=== PATIENT | female | born 1980 | race Caucasian/White ===

== ENCOUNTER → 2018-01-29 09:18 | Outpatient (CLI) | payer OTHER, MEDICAID, SELFPAY ==
[2018-01-29 10:10] LABS: HEMOLYSIS < 15 (0-50); Iron 211 ug/dL (37-170)
[2018-01-29 10:20] LABS: Percent Iron Saturation 73 % (15-50); Total Iron Binding Capacity 291 ug/dL (265-497); Transferrin 238 mg/dL (206-381)
[2018-01-29 10:40] LABS: TSH w/ Reflex to FT4 1.22 uIU/mL (0.47-4.68)
[2018-01-29 10:41] LABS: Testosterone 43.5 ng/dL (5.71-77.0)
== END ==
PROVIDERS: Family Provider Family Medicine; PCP Family Medicine; Visit Provider Family Medicine
DX: L65.9 Nonscarring hair loss, unspecified (principal)
CPT/HCPCS: 36415; 82728; 83540; 83550; 84403; 84443

== ENCOUNTER → 2018-07-16 09:32 | Outpatient (CLI) | payer OTHER, MEDICAID, SELFPAY ==
[2018-07-18 14:09] LABS: Rubeola Measles IgG < 25.00 AU/mL (< 25.00)
== END ==
PROVIDERS: Family Provider Family Medicine; PCP Family Medicine; Visit Provider Family Medicine
DX: Z01.84 Encounter for antibody response examination (principal)
CPT/HCPCS: 36415; 86735; 86765; 86787

== ENCOUNTER → 2018-10-01 12:47 | Outpatient (CLI) | payer OTHER, MEDICAID, SELFPAY ==
[2018-10-01 13:12] LABS: Hemoglobin A1C% w Est Avg Glu 4.7 % (4.0-6.0)
== END ==
PROVIDERS: Family Provider Family Medicine; PCP Family Medicine; Visit Provider Nurse Practitioner Psychiatric/Mental Health
DX: F31.77 Bipolar disorder, in partial remission, most recent episode mixed (principal); Z51.81 Encounter for therapeutic drug level monitoring
CPT/HCPCS: 36415; 83036

== ENCOUNTER → 2019-04-02 07:30 | Outpatient (CLI) | payer OTHER, MEDICAID, SELFPAY ==
[2019-04-02 08:40] LABS: Add Manual Diff / Slide Review NO; Basophils Absolute Auto 0 /uL (0-100); Basophils Percent Auto 0.3 % (0-2); Eosinophils Absolute Auto 100 /uL (0-450); Eosinophils Percent Auto 1.5 % (2-4); Hematocrit 39.4 % (36-46); Hemoglobin 13.6 g/dL (12.0-16.0); Lymphocytes Absolute Auto 1400 /uL (1100-4500); Lymphocytes Percent Auto 27.2 % (25-40); Mean Corpuscular HGB Conc 34.5 % (30-36); Mean Corpuscular Hemoglobin 31.8 PG (26-34); Mean Corpuscular Volume 92.1 fL (80-100); Monocytes Absolute Auto 300 /uL (0-900); Monocytes Percent Auto 4.8 % (3-14); Neutrophils Absolute Auto 3500 /uL (1500-7000); Neutrophils Percent Auto 66.2 % (50-75); Platelet Count 211 X10^3/uL (150-400); Red Blood Cell Count 4.28 X10^6/uL (4.0-5.2); Red Cell Distribution Width 13.4 % (11.6-14.8); White Blood Cell Count 5.3 X10^3/uL (4.5-11.0)
[2019-04-02 08:51] LABS: Vitamin D 25 Hydroxy (D3) 25.9 ng/mL (30.0-100.0)
[2019-04-02 08:53] LABS: Alanine Aminotransferase 24 IU/L (<35); Albumin 4.6 g/dL (3.5-5.0); Albumin Globulin Ratio 1.5 (1.0-2.8); Alkaline Phosphatase 67 U/L (38-126); Aspartate Aminotransferase 25 IU/L (14-36); BUN Creatinine Ratio 22.9 (6-22); Bilirubin Total 0.4 mg/dL (0.2-1.3); Bilirubin Unconjugated 0.4 mg/dL (0.0-1.1); Blood Urea Nitrogen 16 mg/dL (7-17); Calcium 9.3 mg/dL (8.4-10.2); Carbon Dioxide 23 mmol/L (22-32); Chloride 105 mmol/L (98-107); Cholesterol 180 mg/dL (140-199); Estimated Glomerular Filt Rate > 60.0 mL/min (>60); Globulin 3.1 g/dL (1.7-4.1); Glucose 99 mg/dL (70-100); HDL Cholesterol 48 mg/dL (40-60); HEMOLYSIS < 15 (0-50); LDL Cholesterol Calculated 105 mg/dL (<100); Potassium 3.8 mmol/L (3.4-5.1); Sodium 138 mmol/L (137-145); Total Protein 7.7 g/dL (6.3-8.2); Triglycerides 134 mg/dL (35-150)
[2019-04-02 09:08] LABS: Hemoglobin A1C% w Est Avg Glu 4.8 % (4.0-6.0)
[2019-04-02 09:10] LABS: Free T4, Direct Thyroxine 0.85 ng/dL (0.78-2.19)
[2019-04-02 09:24] LABS: Thyroid Stimulating Hormone 1.36 uIU/mL (0.47-4.68)
[2019-04-02 09:37] LABS: Vitamin B12 740 pg/mL (239-931)
== END ==
PROVIDERS: Family Provider Family Medicine; PCP Family Medicine; Referring Provider Nurse Practitioner Psychiatric/Mental Health; Visit Provider Nurse Practitioner Psychiatric/Mental Health
DX: Z51.81 Encounter for therapeutic drug level monitoring (principal); F31.77 Bipolar disorder, in partial remission, most recent episode mixed
CPT/HCPCS: 36415; 80053; 80061; 80076; 82306; 82607; 83036; 84439; 84443; 85025

== ENCOUNTER → 2019-04-03 09:10 | Outpatient (CLI) | payer OTHER, MEDICAID, SELFPAY ==
[2019-04-03 10:10] LABS: UR Morphine/Opiate cutoff 300 Negative (Negative); Ur Creatinine Normal (Normal); Ur Specific Gravity Normal (Normal); Urine Amphetamines Negative (Negative); Urine Barbiturates Negative (Negative); Urine Benzodiazepines Negative (Negative); Urine Cocaine Negative (Negative); Urine MDMA Negative (Negative); Urine Methadone Negative (Negative); Urine Methamphetamines Negative (Negative); Urine Oxycodone Negative (Negative); Urine Phencyclidine Negative (Negative); Urine Tetrahydrocannabinol Negative (Negative); Urine Tricyclic Antidepressant Negative (Negative); Urine pH Normal (Normal)
== END ==
PROVIDERS: Family Provider Family Medicine; PCP Family Medicine; Visit Provider Family Medicine Sleep Medicine
DX: G47.33 Obstructive sleep apnea (adult) (pediatric) (principal); R53.83 Other fatigue; G47.19 Other hypersomnia
CPT/HCPCS: 80305; 95805

== ENCOUNTER → 2019-12-29 15:11 | Outpatient (CLI) | payer OTHER, MEDICAID, SELFPAY ==
[2019-12-29 16:08] LABS: COVID19 -Nasal RAPID Negative (Negative)
== END ==
PROVIDERS: Family Provider Family Medicine; PCP Family Medicine; Visit Provider Nurse Practitioner
DX: J02.9 Acute pharyngitis, unspecified (principal); R05 Cough; R06.02 Shortness of breath; R19.7 Diarrhea, unspecified; R68.83 Chills (without fever)
CPT/HCPCS: 87635

== ENCOUNTER → 2020-04-14 11:05 | Outpatient (CLI) | payer OTHER, MEDICAID, SELFPAY ==
[2020-04-14 11:40] LABS: Add Manual Diff / Slide Review NO; Basophils Absolute Auto 100 /uL (0-100); Basophils Percent Auto 0.7 % (0-2); Eosinophils Absolute Auto 100 /uL (0-450); Eosinophils Percent Auto 1.1 % (2-4); Hematocrit 38.8 % (36-46); Hemoglobin 13.1 g/dL (12.0-16.0); Lymphocytes Absolute Auto 1700 /uL (1100-4500); Lymphocytes Percent Auto 24.1 % (25-40); Mean Corpuscular HGB Conc 33.8 % (30-36); Mean Corpuscular Hemoglobin 30.1 PG (26-34); Mean Corpuscular Volume 88.9 fL (80-100); Monocytes Absolute Auto 400 /uL (0-900); Neutrophils Absolute Auto 4800 /uL (1500-7000); Neutrophils Percent Auto 68.1 % (50-75); Platelet Count 302 X10^3/uL (150-400); Red Blood Cell Count 4.36 X10^6/uL (4.0-5.2); Red Cell Distribution Width 12.8 % (11.6-14.8); White Blood Cell Count 7.1 X10^3/uL (4.5-11.0)
[2020-04-14 12:12] LABS: Glucose 103 mg/dL (70-100)
[2020-04-14 12:51] LABS: TSH w/ Reflex to FT4 0.77 uIU/mL (0.47-4.68)
[2020-04-15 05:37] LABS: Thyroid Peroxidase Antibodies 30 IU/mL (0-34)
[2020-04-15 16:19] LABS: Anti Thyroglobulin Antibody <1.0 IU/mL (0.0-0.9)
== END ==
PROVIDERS: Family Provider Family Medicine; PCP Family Medicine; Referring Provider Nurse Practitioner Family; Visit Provider Family Medicine
DX: R63.5 Abnormal weight gain (principal); R53.83 Other fatigue
CPT/HCPCS: 36415; 82947; 84443; 85025; 86376; 86800

== ENCOUNTER → 2020-06-02 08:03 | Outpatient (CLI) | payer OTHER, MEDICAID, SELFPAY ==
[2020-06-02 08:46] LABS: Hemoglobin A1C% w Est Avg Glu 4.8 % (4.0-6.0)
[2020-06-02 09:18] LABS: HEMOLYSIS < 15 (0-50); Potassium 4.9 mmol/L (3.4-5.1)
[2020-06-02 09:19] LABS: Alanine Aminotransferase 17 IU/L (<35); Albumin 4.4 g/dL (3.5-5.0); Albumin Globulin Ratio 1.5 (1.0-2.8); Alkaline Phosphatase 86 U/L (38-126); Aspartate Aminotransferase 22 IU/L (14-36); BUN Creatinine Ratio 18.1 (6-22); Bilirubin Total 0.2 mg/dL (0.2-1.3); Blood Urea Nitrogen 15 mg/dL (7-17); Calcium 9.6 mg/dL (8.4-10.2); Carbon Dioxide 28 mmol/L (22-32); Chloride 102 mmol/L (98-107); Cholesterol 189 mg/dL (140-199); Estimated Glomerular Filt Rate > 60.0 mL/min (>60); Glucose 94 mg/dL (70-100); HDL Cholesterol 55 mg/dL (40-60); LDL Cholesterol Calculated 108 mg/dL (<100); Sodium 139 mmol/L (137-145); Total Protein 7.4 g/dL (6.3-8.2); Triglycerides 130 mg/dL (35-150)
[2020-06-03 07:36] LABS: Insulin Level Total 16.6 uIU/mL (2.6-24.9)
== END ==
PROVIDERS: Family Provider Family Medicine; PCP Family Medicine; Referring Provider Nurse Practitioner Psychiatric/Mental Health; Visit Provider Nurse Practitioner Psychiatric/Mental Health
DX: Z51.81 Encounter for therapeutic drug level monitoring (principal); F31.32 Bipolar disorder, current episode depressed, moderate; R73.01 Impaired fasting glucose
CPT/HCPCS: 36415; 80053; 80061; 83036; 83525

== ENCOUNTER → 2020-12-12 12:33 | Outpatient (CLI) | payer OTHER, MEDICAID, SELFPAY ==
[2020-12-12 13:16] LABS: Lithium 0.4 mmol/L (0.6-1.2)
[2020-12-12 13:19] LABS: BUN Creatinine Ratio 16.7 (6-22); Blood Urea Nitrogen 12 mg/dL (7-17); Calcium 9.3 mg/dL (8.4-10.2); Carbon Dioxide 27 mmol/L (22-32); Chloride 105 mmol/L (98-107); Estimated Glomerular Filt Rate > 60.0 mL/min (>60); Glucose 99 mg/dL (70-100); Potassium 4.5 mmol/L (3.4-5.1); Sodium 140 mmol/L (137-145)
[2020-12-12 13:20] LABS: HEMOLYSIS 67 (0-50)
[2020-12-12 13:36] LABS: Free T4, Direct Thyroxine 1.23 ng/dL (0.78-2.19)
== END ==
PROVIDERS: Family Provider Family Medicine; PCP Family Medicine; Referring Provider Nurse Practitioner Psychiatric/Mental Health; Visit Provider Nurse Practitioner Psychiatric/Mental Health
DX: F31.32 Bipolar disorder, current episode depressed, moderate (principal); L65.9 Nonscarring hair loss, unspecified; Z51.81 Encounter for therapeutic drug level monitoring; G47.10 Hypersomnia, unspecified
CPT/HCPCS: 36415; 80048; 80178; 84439; 84443

== ENCOUNTER 2020-12-14 13:54 | Emergency (ER) | payer OTHER, MEDICAID, SELFPAY ==
[2020-12-14] VITALS (14 sets, daily range): BP systolic 124–158; BP diastolic 61–98; PULSE 84–115; RESP 24–30; TEMP 36.4–36.8; O2SAT 95–100
--- NOTE | 2020-12-14 13:57 | ED.GENADULT ---
HPI - General Adult <Robin Ray DO - Last Filed: 12/15/20 18:36> General Chief complaint: Psychiatric Symptoms Stated complaint: Psyc Time Seen by Provider: 12/14/20 13:56 Mode of arrival: Ambulatory Limitations: altered mental status History of Present Illness HPI narrative: Patient is a 40-year-old female. Unable to provide any HPI secondary to her presenting psychosis. Patient arrived here in the emergency department under the care of the mental health department. His reported that she did not have an appointment today at mental health. Is reported that she barged into 1 of the provider office is at the mental health clinic. Patient was not directable. Was violent. Apparently through a vace. A code álvarez was called. He left the mental health clinic was walking down the hospital hallway. She was directed to the emergency department. Related Data Previous Rx's Medication Instructions Recorded lamotrigine 100 mg tablet 150 mg PO DAILY #135 tab 09/21/20 lithium carbonate 300 mg capsule 900 mg PO BEDTIME #90 cap 11/17/20 lumateperone 42 mg capsule 42 mg PO DAILY #30 cap 11/17/20 (Caplyta) Allergies Allergy/AdvReac Type Severity Reaction Status Date / Time No Known Drug Allergies Allergy Verified 12/15/20 09:00 Review of Systems <Robin Ray DO - Last Filed: 12/15/20 18:36> Review of Systems ROS Unobtainable: Unobtainable due to mental condition Patient History <Robin Ray DO - Last Filed: 12/15/20 18:36> Medical History Anemia Bipolar 1 disorder, mixed, full remission Bipolar disorder Erythrasma HSV-1 (herpes simplex virus 1) infection Irritable bowel syndrome Obesity Recurrent herpetic eyad (12/28/11) Seasonal allergies Surgical History Anesthesia History of bilateral salpingo-oophorectomy (BSO) (~1999) Ulna fracture (~09/29/14) Family History Grandmother Diabetes mellitus Grandfather Diabetes mellitus Social History Smoking Status: Never smoker Smoking Status: Never smoker Exam <Robin Ray DO - Last Filed: 12/15/20 18:36> Initial Vital Signs Initial Vital Signs: Vital Signs Temperature 98 F 12/14/20 14:22 Pulse Rate 87 12/14/20 14:22 Respiratory Rate 24 12/14/20 14:22 Blood Pressure 131/61 12/14/20 14:22 Pulse Oximetry 96 12/14/20 14:22 HENMT Head: normal to inspection and normocephalic Resp Effort & Inspection: normal respiratory effort Cardio Rate: regular rate Skin General: no rashes or lesions noted Neuro Other: Moves all 4 extremities Extrem General: normal to inspection Psych Other: Not directable, does not speak in coherent sentences. Has an appropriate actions to the staff. <Megha Baires DO - Last Filed: 12/16/20 00:40> Initial Vital Signs Initial Vital Signs: Vital Signs Temperature 98 F 12/14/20 14:22 Pulse Rate 87 12/14/20 14:22 Respiratory Rate 24 12/14/20 14:22 Blood Pressure 131/61 12/14/20 14:22 Pulse Oximetry 96 12/14/20 14:22 Course <Robin Ray DO - Last Filed: 12/15/20 18:36> Orders Ordered: Discontinued Medications Diphenhydramine HCl (Diphenhydramine 50 Mg/Ml Vial) 50 mg IM NOW ONE Stop: 12/14/20 13:58 Last Admin: 12/14/20 14:07 Dose: 50 mg Documented by: TYREE Haloperidol (Haloperidol 5 Mg/Ml Vial) 5 mg IM NOW ONE Stop: 12/14/20 13:58 Last Admin: 12/14/20 14:08 Dose: 5 mg Documented by: TYREE Haloperidol (Haloperidol 5 Mg/Ml Vial) 5 mg IM NOW ONE Stop: 12/14/20 14:00 Last Admin: 12/14/20 14:08 Dose: Not Given Documented by: TYREE Haloperidol (Haloperidol 5 Mg Tablet) 10 mg PO NOW ONE Stop: 12/14/20 18:33 Last Admin: 12/14/20 18:56 Dose: 10 mg Documented by: VIR[place]IA [place] Carbonate ([place] 150 Mg Ir Capsule) 900 mg PO NOW ONE Stop: 12/15/20 04:50 Last Admin: 12/15/20 05:06 Dose: 900 mg Documented by: APOORVA Lorazepam (Lorazepam 2 Mg/Ml Inj) 2 mg IM NOW ONE Stop: 12/14/20 13:58 Last Admin: 12/14/20 14:08 Dose: 2 mg Documented by: YTREE Lorazepam (Lorazepam 0.5 Mg Tablet) 1 mg PO NOW ONE Stop: 12/15/20 09:00 Last Admin: 12/15/20 11:37 Dose: Not Given Documented by: JOYCE Olanzapine (Olanzapine Odt 10 Mg Tab) 10 mg PO NOW ONE Stop: 12/15/20 04:25 Vital Signs Vital signs: Vital Signs - 8 hr 12/15/20 17:48 Temperature 97.9 F Pulse Rate 92 H Respiratory Rate 22 Blood Pressure 128/64 Pulse Oximetry 98 <Megha Baires DO - Last Filed: 12/16/20 00:40> Orders Ordered: Discontinued Medications Diphenhydramine HCl (Diphenhydramine 50 Mg/Ml Vial) 50 mg IM NOW ONE Stop: 12/14/20 13:58 Last Admin: 12/14/20 14:07 Dose: 50 mg Documented by: TYREE Haloperidol (Haloperidol 5 Mg/Ml Vial) 5 mg IM NOW ONE Stop: 12/14/20 13:58 Last Admin: 12/14/20 14:08 Dose: 5 mg Documented by: TYREE Haloperidol (Haloperidol 5 Mg/Ml Vial) 5 mg IM NOW ONE Stop: 12/14/20 14:00 Last Admin: 12/14/20 14:08 Dose: Not Given Documented by: TYREE Haloperidol (Haloperidol 5 Mg Tablet) 10 mg PO NOW ONE Stop: 12/14/20 18:33 Last Admin: 12/14/20 18:56 Dose: 10 mg Documented by: [place] Carbonate ([place] 150 Mg Ir Capsule) 900 mg PO NOW ONE Stop: 12/15/20 04:50 Last Admin: 12/15/20 05:06 Dose: 900 mg Documented by: APOORVA Lorazepam (Lorazepam 2 Mg/Ml Inj) 2 mg IM NOW ONE Stop: 12/14/20 13:58 Last Admin: 12/14/20 14:08 Dose: 2 mg Documented by: TYREE Lorazepam (Lorazepam 0.5 Mg Tablet) 1 mg PO NOW ONE Stop: 12/15/20 09:00 Last Admin: 12/15/20 11:37 Dose: Not Given Documented by: KBROTEM Olanzapine (Olanzapine Odt 10 Mg Tab) 10 mg PO NOW ONE Stop: 12/15/20 04:25 Reevaluation(s) Reevaluation #1: Patient signed out to myself by Dr. Ray. Patient has a history of bipolar. Her lithium level was low making it likely she has been off her medications. This time she is medically cleared. She did receive IM medications she was acutely agitated and had reported code álvarez at the outpatient psych office which she had presented to without reported office visit today. Patient had been sleeping throughout her stay in the department after medications but had since awaken she did give a urine sample this does not show any signs of intoxication or infection. Patient is agitated but was able to be redirected back to her room with the door closed. She was offered p.o. medication. Patient does appear to potentially be gravely disabled. Time: 18:36 Reevaluation #2: Patient re-evaluated. She continues to be quite manic. Our social media director had seen her faxed paperwork to be 0 a. Patient was reviewed by Shaquille. There was discussion about detainment but ultimately they decided they could not as she is not homicidal or suicidal. Patient did take oral medications when prompted this evening. She has been in the room with door unlocked. Plan to keep the patient at this time and if she continues to be voluntary plan for repeat evaluation with our social media director in the morning for possible voluntary placement. Patient's mother was here earlier and did feel she would benefit from placement. Time: 12:30 Vital Signs Vital signs: Vital Signs - 8 hr 12/15/20 17:48 Temperature 97.9 F Pulse Rate 92 H Respiratory Rate 22 Blood Pressure 128/64 Pulse Oximetry 98 Medical Decision Making <Robin Ray, DO - Last Filed: 12/15/20 18:36> Lab Data Lab results reviewed: Yes I reviewed the patient's lab results. Result diagrams: 12/14/20 14:45 12/14/20 14:45 Labs: Lab Results 12/14/20 12/14/20 12/14/20 Range/Units 14:35 14:45 14:45 WBC (4.5-11.0) X10^3/uL RBC (4.0-5.2) X10^6/uL Hgb (12.0-16.0) g/dL Hct (36-46) % MCV (80-100) fL MCH (26-34) PG MCHC (30-36) % RDW (11.6-14.8) % Plt Count (150-400) X10^3/uL Neut % (Auto) (50-75) % Lymph % (Auto) (25-40) % [place] % (Auto) (3-14) % Eos % (Auto) (2-4) % Baso % (Auto) (0-2) % Neut # (Auto) (8324-4039) /uL Lymph # (Auto) (0607-2900) /uL [place] # (Auto) (0-900) /uL Eos # (Auto) (0-450) /uL Baso # (Auto) (0-100) /uL Sodium (137-145) mmol/L Potassium (3.4-5.1) mmol/L Chloride (98-107) mmol/L Carbon Dioxide (22-32) mmol/L BUN (7-17) mg/dL Creatinine (0.52-1.04) mg/dL Estimated GFR (>60) mL/min BUN/Creatinine Ratio (6-22) Glucose (70-100) mg/dL Calcium (8.4-10.2) mg/dL Total Bilirubin (0.2-1.3) mg/dL AST (14-36) IU/L ALT (<35) IU/L Alkaline Phosphatase (38-126) U/L Total Protein (6.3-8.2) g/dL Albumin (3.5-5.0) g/dL Globulin (1.7-4.1) g/dL Albumin/Globulin Ratio (1.0-2.8) Lipase 55 (23-300) U/L TSH (0.47-4.68) uIU/mL Serum , Qual (Negative) Urine Color Urine Appearance Urine pH (4.5-8.0) Ur Specific [place] (1.000-1.035) Urine Protein (Negative) Urine Glucose (UA) (Negative) g/dL Urine Ketones (NEGATIVE) Urine Occult Blood (Negative) Urine Nitrate (Negative) Urine Bilirubin (NEGATIVE) Urine Urobilinogen (0.2) E.U./dL Ur Leukocyte Esterase (NEGATIVE) Urine RBC (0-5/HPF) Urine WBC (0-5/HPF) Ur Squamous Epith Cells (0-5/HPF) Urine Bacteria (None) Ur Culture Indicated? Salicylates < 1.0 (<20) mg/dL U Opiates 300ng/mL cut (Negative) Ur Oxycodone Screen (Negative) Urine Methadone Screen (Negative) Acetaminophen < 10 L (10-30) ug/mL Ur Barbiturates Screen (Negative) U Tricyclic Antidepress (Negative) Ur Phencyclidine Scrn (Negative) Ur Amphetamines Screen (Negative) U Methamphetamines Scrn (Negative) Ur MDMA Scrn (Ecstasy) (Negative) U Benzodiazepines Scrn (Negative) [place] (0.6-1.2) mmol/L Urine Cocaine Screen (Negative) U Marijuana (THC) Screen (Negative) Ethyl Alcohol < 10 ( - 10) mg/dL SARS-CoV-2 (PCR) Negative (Negative) 12/14/20 12/14/20 12/14/20 Range/Units 14:45 14:45 14:45 WBC 10.1 (4.5-11.0) X10^3/uL RBC 3.92 L (4.0-5.2) X10^6/uL Hgb 12.2 (12.0-16.0) g/dL Hct 35.1 L (36-46) % MCV 89.7 (80-100) fL MCH 31.2 (26-34) PG MCHC 34.8 (30-36) % RDW 13.2 (11.6-14.8) % Plt Count 302 (150-400) X10^3/uL Neut % (Auto) 83.2 H (50-75) % Lymph % (Auto) 10.2 L (25-40) % [place] % (Auto) 5.8 (3-14) % Eos % (Auto) 0.1 L (2-4) % Baso % (Auto) 0.7 (0-2) % Neut # (Auto) 8400 H (4745-3369) /uL Lymph # (Auto) 1000 L (0882-0097) /uL [place] # (Auto) 600 (0-900) /uL Eos # (Auto) 0 (0-450) /uL Baso # (Auto) 100 (0-100) /uL Sodium (137-145) mmol/L Potassium (3.4-5.1) mmol/L Chloride (98-107) mmol/L Carbon Dioxide (22-32) mmol/L BUN (7-17) mg/dL Creatinine (0.52-1.04) mg/dL Estimated GFR (>60) mL/min BUN/Creatinine Ratio (6-22) Glucose (70-100) mg/dL Calcium (8.4-10.2) mg/dL Total Bilirubin (0.2-1.3) mg/dL AST (14-36) IU/L ALT (<35) IU/L Alkaline Phosphatase (38-126) U/L Total Protein (6.3-8.2) g/dL Albumin (3.5-5.0) g/dL Globulin (1.7-4.1) g/dL Albumin/Globulin Ratio (1.0-2.8) Lipase (23-300) U/L TSH 3.22 D (0.47-4.68) uIU/mL Serum , Qual Negative (Negative) Urine Color Urine Appearance Urine pH (4.5-8.0) Ur Specific [place] (1.000-1.035) Urine Protein (Negative) Urine Glucose (UA) (Negative) g/dL Urine Ketones (NEGATIVE) Urine Occult Blood (Negative) Urine Nitrate (Negative) Urine Bilirubin (NEGATIVE) Urine Urobilinogen (0.2) E.U./dL Ur Leukocyte Esterase (NEGATIVE) Urine RBC (0-5/HPF) Urine WBC (0-5/HPF) Ur Squamous Epith Cells (0-5/HPF) Urine Bacteria (None) Ur Culture Indicated? Salicylates (<20) mg/dL U Opiates 300ng/mL cut (Negative) Ur Oxycodone Screen (Negative) Urine Methadone Screen (Negative) Acetaminophen (10-30) ug/mL Ur Barbiturates Screen (Negative) U Tricyclic Antidepress (Negative) Ur Phencyclidine Scrn (Negative) Ur Amphetamines Screen (Negative) U Methamphetamines Scrn (Negative) Ur MDMA Scrn (Ecstasy) (Negative) U Benzodiazepines Scrn (Negative) [place] (0.6-1.2) mmol/L Urine Cocaine Screen (Negative) U Marijuana (THC) Screen (Negative) Ethyl Alcohol ( - 10) mg/dL SARS-CoV-2 (PCR) (Negative) 12/14/20 12/14/20 12/14/20 Range/Units 14:45 14:45 17:58 WBC (4.5-11.0) X10^3/uL RBC (4.0-5.2) X10^6/uL Hgb (12.0-16.0) g/dL Hct (36-46) % MCV (80-100) fL MCH (26-34) PG MCHC (30-36) % RDW (11.6-14.8) % Plt Count (150-400) X10^3/uL Neut % (Auto) (50-75) % Lymph % (Auto) (25-40) % [place] % (Auto) (3-14) % Eos % (Auto) (2-4) % Baso % (Auto) (0-2) % Neut # (Auto) (4897-8396) /uL Lymph # (Auto) (9872-7540) /uL [place] # (Auto) (0-900) /uL Eos # (Auto) (0-450) /uL Baso # (Auto) (0-100) /uL Sodium 137 (137-145) mmol/L Potassium 3.5 (3.4-5.1) mmol/L Chloride 103 (98-107) mmol/L Carbon Dioxide 21 L (22-32) mmol/L BUN 10 (7-17) mg/dL Creatinine 0.79 (0.52-1.04) mg/dL Estimated GFR > 60.0 (>60) mL/min BUN/Creatinine Ratio 12.7 (6-22) Glucose 106 H (70-100) mg/dL Calcium 9.5 (8.4-10.2) mg/dL Total Bilirubin 0.7 (0.2-1.3) mg/dL AST 39 H (14-36) IU/L ALT 22 (<35) IU/L Alkaline Phosphatase 85 (38-126) U/L Total Protein 7.5 (6.3-8.2) g/dL Albumin 4.5 (3.5-5.0) g/dL Globulin 3.0 (1.7-4.1) g/dL Albumin/Globulin Ratio 1.5 (1.0-2.8) Lipase (23-300) U/L TSH (0.47-4.68) uIU/mL Serum , Qual (Negative) Urine Color Yellow Urine Appearance Clear Urine pH 6.0 (4.5-8.0) Ur Specific [place] 1.010 (1.000-1.035) Urine Protein Negative (Negative) Urine Glucose (UA) Negative (Negative) g/dL Urine Ketones 1+ H (NEGATIVE) Urine Occult Blood Trace-lysed (Negative) Urine Nitrate Negative (Negative) Urine Bilirubin Negative (NEGATIVE) Urine Urobilinogen 0.2 (0.2) E.U./dL Ur Leukocyte Esterase Negative (NEGATIVE) Urine RBC 0-1/hpf (0-5/HPF) Urine WBC 0-1/hpf (0-5/HPF) Ur Squamous Epith Cells 0-1 /hpf (0-5/HPF) Urine Bacteria None seen (None) Ur Culture Indicated? Cult not indicated Salicylates (<20) mg/dL U Opiates 300ng/mL cut (Negative) Ur Oxycodone Screen (Negative) Urine Methadone Screen (Negative) Acetaminophen (10-30) ug/mL Ur Barbiturates Screen (Negative) U Tricyclic Antidepress (Negative) Ur Phencyclidine Scrn (Negative) Ur Amphetamines Screen (Negative) U Methamphetamines Scrn (Negative) Ur MDMA Scrn (Ecstasy) (Negative) U Benzodiazepines Scrn (Negative) [place] 0.2 L (0.6-1.2) mmol/L Urine Cocaine Screen (Negative) U Marijuana (THC) Screen (Negative) Ethyl Alcohol ( - 10) mg/dL SARS-CoV-2 (PCR) (Negative) 12/14/20 Range/Units 17:58 WBC (4.5-11.0) X10^3/uL RBC (4.0-5.2) X10^6/uL Hgb (12.0-16.0) g/dL Hct (36-46) % MCV (80-100) fL MCH (26-34) PG MCHC (30-36) % RDW (11.6-14.8) % Plt Count (150-400) X10^3/uL Neut % (Auto) (50-75) % Lymph % (Auto) (25-40) % [place] % (Auto) (3-14) % Eos % (Auto) (2-4) % Baso % (Auto) (0-2) % Neut # (Auto) (2953-0013) /uL Lymph # (Auto) (9749-5748) /uL [place] # (Auto) (0-900) /uL Eos # (Auto) (0-450) /uL Baso # (Auto) (0-100) /uL Sodium (137-145) mmol/L Potassium (3.4-5.1) mmol/L Chloride (98-107) mmol/L Carbon Dioxide (22-32) mmol/L BUN (7-17) mg/dL Creatinine (0.52-1.04) mg/dL Estimated GFR (>60) mL/min BUN/Creatinine Ratio (6-22) Glucose (70-100) mg/dL Calcium (8.4-10.2) mg/dL Total Bilirubin (0.2-1.3) mg/dL AST (14-36) IU/L ALT (<35) IU/L Alkaline Phosphatase (38-126) U/L Total Protein (6.3-8.2) g/dL Albumin (3.5-5.0) g/dL Globulin (1.7-4.1) g/dL Albumin/Globulin Ratio (1.0-2.8) Lipase (23-300) U/L TSH (0.47-4.68) uIU/mL Serum , Qual (Negative) Urine Color Urine Appearance Urine pH (4.5-8.0) Ur Specific [place] (1.000-1.035) Urine Protein (Negative) Urine Glucose (UA) (Negative) g/dL Urine Ketones (NEGATIVE) Urine Occult Blood (Negative) Urine Nitrate (Negative) Urine Bilirubin (NEGATIVE) Urine Urobilinogen (0.2) E.U./dL Ur Leukocyte Esterase (NEGATIVE) Urine RBC (0-5/HPF) Urine WBC (0-5/HPF) Ur Squamous Epith Cells (0-5/HPF) Urine Bacteria (None) Ur Culture Indicated? Salicylates (<20) mg/dL U Opiates 300ng/mL cut Negative (Negative) Ur Oxycodone Screen Negative (Negative) Urine Methadone Screen Negative (Negative) Acetaminophen (10-30) ug/mL Ur Barbiturates Screen Negative (Negative) U Tricyclic Antidepress Negative (Negative) Ur Phencyclidine Scrn Negative (Negative) Ur Amphetamines Screen Negative (Negative) U Methamphetamines Scrn Negative (Negative) Ur MDMA Scrn (Ecstasy) Negative (Negative) U Benzodiazepines Scrn Negative (Negative) [place] (0.6-1.2) mmol/L Urine Cocaine Screen Negative (Negative) U Marijuana (THC) Screen Negative (Negative) Ethyl Alcohol ( - 10) mg/dL SARS-CoV-2 (PCR) (Negative) Point of Care Testing Test Results Negative Urine Dip Bedside Urine Glucose Negative Bedside Urine Bilirubin - Negative Bedside Urine Ketone + 15 Urine Specific [place] 1.020 Bedside Urine Occult Blood - Negative Bedside Urine pH 6.0 Bedside Urine Protein - Negative Bedside Urine Urobilinogen - Negative Bedside Urine Nitrite - Negative Bedside Urine Leukocytes - Negative Esterase Point of care testing: Point of Care Testing Test Results Negative Urine Dip Bedside Urine Glucose Negative Bedside Urine Bilirubin - Negative Bedside Urine Ketone + 15 Urine Specific [place] 1.020 Bedside Urine Occult Blood - Negative Bedside Urine pH 6.0 Bedside Urine Protein - Negative Bedside Urine Urobilinogen - Negative Bedside Urine Nitrite - Negative Bedside Urine Leukocytes - Negative Esterase MDM Narrative Medical decision making narrative: Upon presentation patient obviously manic. Patient does not have capacity to make decisions. She was inappropriate with her actions, was not directable. Was not oriented. Was violent at the mental health clinic. I did feel the need to chemically sedate the patient for her safety and the safety of the staff. Labs are ordered. Decision was made to hold on obtaining any urine from the patient until she becomes more awake. Care turned over to night ED provider to continue to observe and medically clear and disposition. Patient medically cleared. Patient was evaluated by our social media director we both feel she is appropriate to be evaluated by [facility] she appears to be gravely disabled from her bipolar at this time. Mother did arrive and states she was hospitalized in the month of June. She states she has not been well controlled even with her medications and they noted she took them several days ago. She is scheduled for core appearance regarding her divorce and custody of her children and she states this has been making her bipolar worse as the patient is aware that she is going to lose her children secondary to her disease. Mother states that she does think hospitalization would be very appropriate and that if it is a possibility placement at [facility] would be preferred which is where she was last placed as they live in [place]. [address] did not detain patient after evaluation although there was discussion initially that they might. They feel patient is not a danger to herself or others at this time. Our social media director did see her here in the department and so far patient has continued to be agreeable to staying until the morning for evaluation. Patient signed out to Dr. Ray this morning for final disposition. Dr ray: I am aware of the patient from yesterday's visit. I did review the overnight notes. Patient was seen by DCR but decision was made to not involuntarily admit. On my evaluation today the patient is consistently manic. She is minimally directable. At 1 point was screaming out in the room because she ?did not want any shots. I told her that were not going to give her any more medicine through a shot. She did take medication orally. I do not feel that the patient has capacity to make decisions. Her open Door restraints were renewed multiple times. Patient was seen in the emergency department by her mental health provider. She was also seen again by social Work. Everyone is in agreement that the patient should not be discharged home. She was re-evaluated by DCR and this time was detained. I do feel that this is the best thing for her. Her mother who was here today also feel this is the best thing. Social work and the patient's mental health provider also agree. Patient will be transported for continued inpatient mental health evaluation and treatment. <Megha Baires, DO - Last Filed: 12/16/20 00:40> Lab Data Labs: Lab Results 12/14/20 12/14/20 12/14/20 Range/Units 14:35 14:45 14:45 WBC (4.5-11.0) X10^3/uL RBC (4.0-5.2) X10^6/uL Hgb (12.0-16.0) g/dL Hct (36-46) % MCV (80-100) fL MCH (26-34) PG MCHC (30-36) % RDW (11.6-14.8) % Plt Count (150-400) X10^3/uL Neut % (Auto) (50-75) % Lymph % (Auto) (25-40) % [place] % (Auto) (3-14) % Eos % (Auto) (2-4) % Baso % (Auto) (0-2) % Neut # (Auto) (2186-5916) /uL Lymph # (Auto) (2947-8727) /uL [place] # (Auto) (0-900) /uL Eos # (Auto) (0-450) /uL Baso # (Auto) (0-100) /uL Sodium (137-145) mmol/L Potassium (3.4-5.1) mmol/L Chloride (98-107) mmol/L Carbon Dioxide (22-32) mmol/L BUN (7-17) mg/dL Creatinine (0.52-1.04) mg/dL Estimated GFR (>60) mL/min BUN/Creatinine Ratio (6-22) Glucose (70-100) mg/dL Calcium (8.4-10.2) mg/dL Total Bilirubin (0.2-1.3) mg/dL AST (14-36) IU/L ALT (<35) IU/L Alkaline Phosphatase (38-126) U/L Total Protein (6.3-8.2) g/dL Albumin (3.5-5.0) g/dL Globulin (1.7-4.1) g/dL Albumin/Globulin Ratio (1.0-2.8) Lipase 55 (23-300) U/L TSH (0.47-4.68) uIU/mL Serum , Qual (Negative) Urine Color Urine Appearance Urine pH (4.5-8.0) Ur Specific [place] (1.000-1.035) Urine Protein (Negative) Urine Glucose (UA) (Negative) g/dL Urine Ketones (NEGATIVE) Urine Occult Blood (Negative) Urine Nitrate (Negative) Urine Bilirubin (NEGATIVE) Urine Urobilinogen (0.2) E.U./dL Ur Leukocyte Esterase (NEGATIVE) Urine RBC (0-5/HPF) Urine WBC (0-5/HPF) Ur Squamous Epith Cells (0-5/HPF) Urine Bacteria (None) Ur Culture Indicated? Salicylates < 1.0 (<20) mg/dL U Opiates 300ng/mL cut (Negative) Ur Oxycodone Screen (Negative) Urine Methadone Screen (Negative) Acetaminophen < 10 L (10-30) ug/mL Ur Barbiturates Screen (Negative) U Tricyclic Antidepress (Negative) Ur Phencyclidine Scrn (Negative) Ur Amphetamines Screen (Negative) U Methamphetamines Scrn (Negative) Ur MDMA Scrn (Ecstasy) (Negative) U Benzodiazepines Scrn (Negative) [place] (0.6-1.2) mmol/L Urine Cocaine Screen (Negative) U Marijuana (THC) Screen (Negative) Ethyl Alcohol < 10 ( - 10) mg/dL SARS-CoV-2 (PCR) Negative (Negative) 12/14/20 12/14/20 12/14/20 Range/Units 14:45 14:45 14:45 WBC 10.1 (4.5-11.0) X10^3/uL RBC 3.92 L (4.0-5.2) X10^6/uL Hgb 12.2 (12.0-16.0) g/dL Hct 35.1 L (36-46) % MCV 89.7 (80-100) fL MCH 31.2 (26-34) PG MCHC 34.8 (30-36) % RDW 13.2 (11.6-14.8) % Plt Count 302 (150-400) X10^3/uL Neut % (Auto) 83.2 H (50-75) % Lymph % (Auto) 10.2 L (25-40) % [place] % (Auto) 5.8 (3-14) % Eos % (Auto) 0.1 L (2-4) % Baso % (Auto) 0.7 (0-2) % Neut # (Auto) 8400 H (8756-7942) /uL Lymph # (Auto) 1000 L (8216-5484) /uL [place] # (Auto) 600 (0-900) /uL Eos # (Auto) 0 (0-450) /uL Baso # (Auto) 100 (0-100) /uL Sodium (137-145) mmol/L Potassium (3.4-5.1) mmol/L Chloride (98-107) mmol/L Carbon Dioxide (22-32) mmol/L BUN (7-17) mg/dL Creatinine (0.52-1.04) mg/dL Estimated GFR (>60) mL/min BUN/Creatinine Ratio (6-22) Glucose (70-100) mg/dL Calcium (8.4-10.2) mg/dL Total Bilirubin (0.2-1.3) mg/dL AST (14-36) IU/L ALT (<35) IU/L Alkaline Phosphatase (38-126) U/L Total Protein (6.3-8.2) g/dL Albumin (3.5-5.0) g/dL Globulin (1.7-4.1) g/dL Albumin/Globulin Ratio (1.0-2.8) Lipase (23-300) U/L TSH 3.22 D (0.47-4.68) uIU/mL Serum , Qual Negative (Negative) Urine Color Urine Appearance Urine pH (4.5-8.0) Ur Specific [place] (1.000-1.035) Urine Protein (Negative) Urine Glucose (UA) (Negative) g/dL Urine Ketones (NEGATIVE) Urine Occult Blood (Negative) Urine Nitrate (Negative) Urine Bilirubin (NEGATIVE) Urine Urobilinogen (0.2) E.U./dL Ur Leukocyte Esterase (NEGATIVE) Urine RBC (0-5/HPF) Urine WBC (0-5/HPF) Ur Squamous Epith Cells (0-5/HPF) Urine Bacteria (None) Ur Culture Indicated? Salicylates (<20) mg/dL U Opiates 300ng/mL cut (Negative) Ur Oxycodone Screen (Negative) Urine Methadone Screen (Negative) Acetaminophen (10-30) ug/mL Ur Barbiturates Screen (Negative) U Tricyclic Antidepress (Negative) Ur Phencyclidine Scrn (Negative) Ur Amphetamines Screen (Negative) U Methamphetamines Scrn (Negative) Ur MDMA Scrn (Ecstasy) (Negative) U Benzodiazepines Scrn (Negative) [place] (0.6-1.2) mmol/L Urine Cocaine Screen (Negative) U Marijuana (THC) Screen (Negative) Ethyl Alcohol ( - 10) mg/dL SARS-CoV-2 (PCR) (Negative) 12/14/20 12/14/20 12/14/20 Range/Units 14:45 14:45 17:58 WBC (4.5-11.0) X10^3/uL RBC (4.0-5.2) X10^6/uL Hgb (12.0-16.0) g/dL Hct (36-46) % MCV (80-100) fL MCH (26-34) PG MCHC (30-36) % RDW (11.6-14.8) % Plt Count (150-400) X10^3/uL Neut % (Auto) (50-75) % Lymph % (Auto) (25-40) % [place] % (Auto) (3-14) % Eos % (Auto) (2-4) % Baso % (Auto) (0-2) % Neut # (Auto) (3972-6761) /uL Lymph # (Auto) (3205-0853) /uL [place] # (Auto) (0-900) /uL Eos # (Auto) (0-450) /uL Baso # (Auto) (0-100) /uL Sodium 137 (137-145) mmol/L Potassium 3.5 (3.4-5.1) mmol/L Chloride 103 (98-107) mmol/L Carbon Dioxide 21 L (22-32) mmol/L BUN 10 (7-17) mg/dL Creatinine 0.79 (0.52-1.04) mg/dL Estimated GFR > 60.0 (>60) mL/min BUN/Creatinine Ratio 12.7 (6-22) Glucose 106 H (70-100) mg/dL Calcium 9.5 (8.4-10.2) mg/dL Total Bilirubin 0.7 (0.2-1.3) mg/dL AST 39 H (14-36) IU/L ALT 22 (<35) IU/L Alkaline Phosphatase 85 (38-126) U/L Total Protein 7.5 (6.3-8.2) g/dL Albumin 4.5 (3.5-5.0) g/dL Globulin 3.0 (1.7-4.1) g/dL Albumin/Globulin Ratio 1.5 (1.0-2.8) Lipase (23-300) U/L TSH (0.47-4.68) uIU/mL Serum , Qual (Negative) Urine Color Yellow Urine Appearance Clear Urine pH 6.0 (4.5-8.0) Ur Specific Pitts 1.010 (1.000-1.035) Urine Protein Negative (Negative) Urine Glucose (UA) Negative (Negative) g/dL Urine Ketones 1+ H (NEGATIVE) Urine Occult Blood Trace-lysed (Negative) Urine Nitrate Negative (Negative) Urine Bilirubin Negative (NEGATIVE) Urine Urobilinogen 0.2 (0.2) E.U./dL Ur Leukocyte Esterase Negative (NEGATIVE) Urine RBC 0-1/hpf (0-5/HPF) Urine WBC 0-1/hpf (0-5/HPF) Ur Squamous Epith Cells 0-1 /hpf (0-5/HPF) Urine Bacteria None seen (None) Ur Culture Indicated? Cult not indicated Salicylates (<20) mg/dL U Opiates 300ng/mL cut (Negative) Ur Oxycodone Screen (Negative) Urine Methadone Screen (Negative) Acetaminophen (10-30) ug/mL Ur Barbiturates Screen (Negative) U Tricyclic Antidepress (Negative) Ur Phencyclidine Scrn (Negative) Ur Amphetamines Screen (Negative) U Methamphetamines Scrn (Negative) Ur MDMA Scrn (Ecstasy) (Negative) U Benzodiazepines Scrn (Negative) [place] 0.2 L (0.6-1.2) mmol/L Urine Cocaine Screen (Negative) U Marijuana (THC) Screen (Negative) Ethyl Alcohol ( - 10) mg/dL SARS-CoV-2 (PCR) (Negative) 12/14/20 Range/Units 17:58 WBC (4.5-11.0) X10^3/uL RBC (4.0-5.2) X10^6/uL Hgb (12.0-16.0) g/dL Hct (36-46) % MCV (80-100) fL MCH (26-34) PG MCHC (30-36) % RDW (11.6-14.8) % Plt Count (150-400) X10^3/uL Neut % (Auto) (50-75) % Lymph % (Auto) (25-40) % [place] % (Auto) (3-14) % Eos % (Auto) (2-4) % Baso % (Auto) (0-2) % Neut # (Auto) (2015-9701) /uL Lymph # (Auto) (7157-8112) /uL [place] # (Auto) (0-900) /uL Eos # (Auto) (0-450) /uL Baso # (Auto) (0-100) /uL Sodium (137-145) mmol/L Potassium (3.4-5.1) mmol/L Chloride (98-107) mmol/L Carbon Dioxide (22-32) mmol/L BUN (7-17) mg/dL Creatinine (0.52-1.04) mg/dL Estimated GFR (>60) mL/min BUN/Creatinine Ratio (6-22) Glucose (70-100) mg/dL Calcium (8.4-10.2) mg/dL Total Bilirubin (0.2-1.3) mg/dL AST (14-36) IU/L ALT (<35) IU/L Alkaline Phosphatase (38-126) U/L Total Protein (6.3-8.2) g/dL Albumin (3.5-5.0) g/dL Globulin (1.7-4.1) g/dL Albumin/Globulin Ratio (1.0-2.8) Lipase (23-300) U/L TSH (0.47-4.68) uIU/mL Serum , Qual (Negative) Urine Color Urine Appearance Urine pH (4.5-8.0) Ur Specific [place] (1.000-1.035) Urine Protein (Negative) Urine Glucose (UA) (Negative) g/dL Urine Ketones (NEGATIVE) Urine Occult Blood (Negative) Urine Nitrate (Negative) Urine Bilirubin (NEGATIVE) Urine Urobilinogen (0.2) E.U./dL Ur Leukocyte Esterase (NEGATIVE) Urine RBC (0-5/HPF) Urine WBC (0-5/HPF) Ur Squamous Epith Cells (0-5/HPF) Urine Bacteria (None) Ur Culture Indicated? Salicylates (<20) mg/dL U Opiates 300ng/mL cut Negative (Negative) Ur Oxycodone Screen Negative (Negative) Urine Methadone Screen Negative (Negative) Acetaminophen (10-30) ug/mL Ur Barbiturates Screen Negative (Negative) U Tricyclic Antidepress Negative (Negative) Ur Phencyclidine Scrn Negative (Negative) Ur Amphetamines Screen Negative (Negative) U Methamphetamines Scrn Negative (Negative) Ur MDMA Scrn (Ecstasy) Negative (Negative) U Benzodiazepines Scrn Negative (Negative) [place] (0.6-1.2) mmol/L Urine Cocaine Screen Negative (Negative) U Marijuana (THC) Screen Negative (Negative) Ethyl Alcohol ( - 10) mg/dL SARS-CoV-2 (PCR) (Negative) Point of Care Testing Test Results Negative Urine Dip Bedside Urine Glucose Negative Bedside Urine Bilirubin - Negative Bedside Urine Ketone + 15 Urine Specific Pitts 1.020 Bedside Urine Occult Blood - Negative Bedside Urine pH 6.0 Bedside Urine Protein - Negative Bedside Urine Urobilinogen - Negative Bedside Urine Nitrite - Negative Bedside Urine Leukocytes - Negative Esterase Point of care testing: Point of Care Testing Test Results Negative Urine Dip Bedside Urine Glucose Negative Bedside Urine Bilirubin - Negative Bedside Urine Ketone + 15 Urine Specific [place] 1.020 Bedside Urine Occult Blood - Negative Bedside Urine pH 6.0 Bedside Urine Protein - Negative Bedside Urine Urobilinogen - Negative Bedside Urine Nitrite - Negative Bedside Urine Leukocytes - Negative Esterase MDM Narrative Medical decision making narrative: Upon presentation patient obviously manic. Patient does not have capacity to make decisions. She was inappropriate with her actions, was not directable. Was not oriented. Was violent at the mental health clinic. I did feel the need to chemically sedate the patient for her safety and the safety of the staff. Labs are ordered. Decision was made to hold on obtaining any urine from the patient until she becomes more awake. Care turned over to night ED provider to continue to observe and medically clear and disposition. Patient medically cleared. Patient was evaluated by our social media director we both feel she is appropriate to be evaluated by [facility] she appears to be gravely disabled from her bipolar at this time. Mother did arrive and states she was hospitalized in the month of June. She states she has not been well controlled even with her medications and they noted she took them several days ago. She is scheduled for core appearance regarding her divorce and custody of her children and she states this has been making her bipolar worse as the patient is aware that she is going to lose her children secondary to her disease. Mother states that she does think hospitalization would be very appropriate and that if it is a possibility placement at [facility] would be preferred which is where she was last placed as they live in [place]. [facility] did not detain patient after evaluation although there was discussion initially that they might. They feel patient is not a danger to herself or others at this time. Our social media director did see her here in the department and so far patient has continued to be agreeable to staying until the morning for evaluation. Patient signed out to Dr. Ray this morning for final disposition. Dr ray: I am aware of the patient from yesterday's visit. I did review the overnight notes. Patient was seen by DCR but decision was made to not involuntarily admit. On my evaluation today the patient is consistently manic. She is minimally directable. At 1 point was screaming out in the room because she ?did not want any shots. I told her that were not going to give her any more medicine through a shot. She did take medication orally. I do not feel that the patient has capacity to make decisions. Her open Door restraints were renewed multiple times. Patient was seen in the emergency department by her mental health provider. She was also seen again by social Work. Everyone is in agreement that the patient should not be discharged home. She was re-evaluated by DCR and this time was detained. I do feel that this is the best thing for her. Her mother who was here today also feel this is the best thing. Social work and the patient's mental health provider also agree. Patient will be transported for continued inpatient mental health evaluation and treatment. Discharge Plan Departure Patient Disposition: [facility] Clinical Impression: Bipolar 1 disorder, mixed, partial remission, Yoselyn Referrals: Ena Graham DO [Primary Care Provider] - Restraint Nxsj-[id number] <Robin Ray DO - Last Filed: 12/15/20 18:36> Restraint Wayy-bh-Tdfx Evaluation Ofqx-gf-Gbdg #1: Date: 12/14/20 Time: 14:31 Patient Appearance: Unkempt, Bizarre and Inappropriate Level of Consciousness: Alert, Disoriented and Inappropriate Speech Pattern: Excited, Garbled, Rambling and Slurred Mood Description: Elated Ability to Follow Directions: Poor Respirations: Normal respiratory rate Cardiac: Regular Rate Circulation: Moves all extremities Behavior necessitating restraint: Agitated and Confusion Restraint risks explained to patient: No Restraint risks explained to family: No Reaction to Intervention: Resting with Eyes Closed Restraint Needs: Continue Restraints
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
--- NOTE | 2020-12-14 14:00 | PC.NURSE ---
Pt placed in temporary seclusion while meds are being obtained.
[2020-12-14] MEDS: diphenhydrAMINE 50 MG/ML VIAL IM (14:07)
[2020-12-14] MEDS: LORazepam 2 MG/ML INJ IM (14:08)
[2020-12-14] MEDS: HALOPERIDOL 5 MG/ML VIAL IM (14:08)
--- NOTE | 2020-12-14 14:15 | PC.NURSE ---
Pt now quieting down and resting, becoming more redirectable. Seclusion discontinued due to adequate sedation by medications.
--- NOTE | 2020-12-14 14:40 | PC.NURSE ---
Respiratory rate at 28
--- NOTE | 2020-12-14 14:46 | PC.NURSE ---
Respiratory rate at 32
[2020-12-14 14:55] LABS: Add Manual Diff / Slide Review NO; Basophils Absolute Auto 100 /uL (0-100); Basophils Percent Auto 0.7 % (0-2); Eosinophils Absolute Auto 0 /uL (0-450); Eosinophils Percent Auto 0.1 % (2-4); Hematocrit 35.1 % (36-46); Hemoglobin 12.2 g/dL (12.0-16.0); Lymphocytes Absolute Auto 1000 /uL (1100-4500); Lymphocytes Percent Auto 10.2 % (25-40); Mean Corpuscular HGB Conc 34.8 % (30-36); Mean Corpuscular Hemoglobin 31.2 PG (26-34); Mean Corpuscular Volume 89.7 fL (80-100); Monocytes Absolute Auto 600 /uL (0-900); Monocytes Percent Auto 5.8 % (3-14); Neutrophils Absolute Auto 8400 /uL (1500-7000); Neutrophils Percent Auto 83.2 % (50-75); Platelet Count 302 X10^3/uL (150-400); Red Blood Cell Count 3.92 X10^6/uL (4.0-5.2); Red Cell Distribution Width 13.2 % (11.6-14.8); White Blood Cell Count 10.1 X10^3/uL (4.5-11.0)
--- NOTE | 2020-12-14 14:57 | PC.NURSE ---
Pt now sleeping quietly, lying on her back covered in blankets. Respirations even, unlabored. Green scrubs applied. HOME CONNECT LPN sitting 2:1.
--- NOTE | 2020-12-14 15:00 | PC.NURSE ---
Respiratory rate at 30
[2020-12-14 15:09] LABS: Acetaminophen < 10 ug/mL (10-30); Alanine Aminotransferase 22 IU/L (<35); Albumin 4.5 g/dL (3.5-5.0); Albumin Globulin Ratio 1.5 (1.0-2.8); Alkaline Phosphatase 85 U/L (38-126); Aspartate Aminotransferase 39 IU/L (14-36); BUN Creatinine Ratio 12.7 (6-22); Bilirubin Total 0.7 mg/dL (0.2-1.3); Blood Urea Nitrogen 10 mg/dL (7-17); Calcium 9.5 mg/dL (8.4-10.2); Carbon Dioxide 21 mmol/L (22-32); Chloride 103 mmol/L (98-107); Estimated Glomerular Filt Rate > 60.0 mL/min (>60); Ethanol (ETOH) < 10 mg/dL; Glucose 106 mg/dL (70-100); HEMOLYSIS < 15 (0-50); Lipase 55 U/L (23-300); Potassium 3.5 mmol/L (3.4-5.1); Salicylate < 1.0 mg/dL (<20); Sodium 137 mmol/L (137-145); Total Protein 7.5 g/dL (6.3-8.2)
--- NOTE | 2020-12-14 15:11 | PC.NURSE ---
Respiratory rate at 30
--- NOTE | 2020-12-14 15:12 | PC.NURSE ---
respiratory rate at 30
[2020-12-14 15:13] LABS: Lithium 0.2 mmol/L (0.6-1.2)
[2020-12-14 15:14] LABS: COVID19 -Nasal RAPID Negative (Negative)
[2020-12-14 15:18] LABS: Pregnancy Test Serum,Qual Negative (Negative)
[2020-12-14 15:48] LABS: Thyroid Stimulating Hormone 3.22 uIU/mL (0.47-4.68)
[2020-12-14 18:19] LABS: UR Morphine/Opiate cutoff 300 Negative (Negative); Ur Creatinine Normal (Normal); Ur Specific Gravity Normal (Normal); Urine Amphetamines Negative (Negative); Urine Barbiturates Negative (Negative); Urine Benzodiazepines Negative (Negative); Urine Cocaine Negative (Negative); Urine MDMA Negative (Negative); Urine Methadone Negative (Negative); Urine Methamphetamines Negative (Negative); Urine Oxycodone Negative (Negative); Urine Phencyclidine Negative (Negative); Urine Tetrahydrocannabinol Negative (Negative); Urine Tricyclic Antidepressant Negative (Negative); Urine pH Normal (Normal)
[2020-12-14 18:20] LABS: Appearance Urine UA CLEAR; Bilirubin Urine UA NEGATIVE (NEGATIVE); Color Urine UA YELLOW; Glucose Urine UA NEGATIVE (Negative); Ketones Urine UA 1+ (NEGATIVE); Leukocyte Esterase Urine UA NEGATIVE (NEGATIVE); Nitrite Urine UA NEGATIVE (Negative); Occult Blood Urine UA TRACE-LYSED (Negative); Protein Urine UA NEGATIVE (Negative); Urobilinogen Urine UA 0.2 E.U./dL (0.2)
[2020-12-14 18:26] LABS: RBC Urine 0-1/HPF (0-5/HPF); Squamous Epithelial Cell Urine 0-1 /HPF (0-5/HPF); WBC Urine 0-1/HPF (0-5/HPF)
[2020-12-14 18:27] LABS: Bacteria Urine None Seen; Culture Indicated Urine Cult Not Indicated
--- NOTE | 2020-12-14 18:45 | PC.NURSE ---
Pt is becoming more agitated after resting for several hours. She is ramping up, with pressured, rambling, disorganized speech. Pacing around the room, once attempting to push past SUMO WRESTLER sitter and exit the room. Pt placed back in seclusion temporarily while orders are obtained.
[2020-12-14] MEDS: haloperidoL 5 MG TABLET 10 MG PO (18:56)
--- NOTE | 2020-12-14 19:05 | PC.NURSE ---
Pt willingly take PO meds with some encouragement. Singing to herself in the room.
--- NOTE | 2020-12-14 20:30 | PC.NURSE ---
Patient has been talking about all different sorts of conversations. very random and not making sense. She is needing someone to talk with her one on one at all times. she has been nice for the last two hours that I have been watching her.
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
--- NOTE | 2020-12-14 21:56 | PC.NURSE ---
Mom has come to visit with patient. Spent with patient for about 30 mins. Mom is heading out for the night, I have checked on patient. I have given her a cup of ice water and two apple juice boxes.
--- NOTE | 2020-12-14 22:18 | PC.NURSE ---
Patient seems to be sleeping.
--- NOTE | 2020-12-14 22:35 | PC.NURSE ---
The Patient's mother came in to see her, was at the bedside for aprox 30 minutes. The mother will be remain in town at the patient home, the best phone number to reach the mother is her cell number, .
--- NOTE | 2020-12-14 23:49 | PC.NURSE ---
pt on zoom call with RAMBO Corbin sitting in room.
--- NOTE | 2020-12-15 00:59 | PC.NURSE ---
At approx 2345 pt received zoom call from RAMBO Fierro, Pt was woke for this call, she was alert and active quickly upon waking. At 0040 Pt was back to bed, some restless movement of arms and legs noted for about 25 minutes.
--- NOTE | 2020-12-15 01:32 | PC.NURSE ---
DCR called stating he wasn't going to detain patient. Reports pt is not a threat to herself or others.
--- NOTE | 2020-12-15 02:16 | PC.NURSE ---
at 0200 pt woke up and approached sitter at doorway. pt mentions something about prune juice then goes off on tangent that cannot be easily followed. Sitter asks if pt needs water or any snacks and pt declines offer then goes back to bed.
--- NOTE | 2020-12-15 03:27 | PC.NURSE ---
Pt has been resting quietly in the room, up out of bed x 1 in the past 2 hours, easily redirected. Door to the room has been open as of 0200. 1:1 observation continues.
--- NOTE | 2020-12-15 04:32 | PC.NURSE ---
pt had semi-coherent conversation with sitter mentioning their illness feels like ground hog day. I can be out in the mall getting a fall and winter jacket then be in here [in the hospital].
[2020-12-15] MEDS: LITHIUM 150 MG IR CAPSULE 900 MG PO (05:06)
--- NOTE | 2020-12-15 05:15 | PC.NURSE ---
Pt has been awake and restless, slightly anxious at times. Continues to be delusional, pt refused to take zyprexa but was willing to take lithium. Pt has been given snacks, juice and water. Pt has been given origami papers and instructions to make a addison in an attempt to give her some sort of activity to focus on. Pt is sitting just inside the door to her room with a small table, gets up frequently to walk around in the room or come to the door to talk to staff. Pt thoughts are very disorganized, she has difficulty completing sentences at times, like the thought changes before she can complete her sentence. Pt speaks rapidly and loudly, will interrupt staff when being spoken to.
--- NOTE | 2020-12-15 05:42 | PC.NURSE ---
Pt is out of the room walking laps around the ED with the patient tap builder. Pt is talking continuously, concerned about her court date.
--- NOTE | 2020-12-15 05:46 | PC.NURSE ---
late entry: Orders for seclusion have , no new orders. Door to room remains open, pt being redirected by staff.
--- NOTE | 2020-12-15 08:03 | PC.NURSE ---
Pt has a safety tray from dietary.
--- NOTE | 2020-12-15 09:18 | PC.NURSE ---
Pt is in her room singing hymns from moravian and pacing. At this time she is complaint and redirectable.
--- NOTE | 2020-12-15 09:44 | PC.NURSE ---
Rn was in room with patient and offered medication. Pt became agitated and started to scream. Rn and doctor were able to de-escalate patient. Pt's mother is here to visit. Patient is less agitated and redirectable at this time.
--- NOTE | 2020-12-15 09:50 | PC.NURSE ---
Pt took home dose of caplyta per Dr Ray.
--- NOTE | 2020-12-15 09:53 | PC.NURSE ---
DCR paged out for 2nd time.
--- NOTE | 2020-12-15 10:20 | PC.NURSE ---
Pt is in her room and fixated on going to court and to the dentist. Patient insists on getting an abutment on her missing crown. Patient's mom is in her room. Patient is calm and redirectable at this time.
--- NOTE | 2020-12-15 10:48 | PC.NURSE ---
MOBILE PATROL OFFICER is in room talking with patient and mom. Patient ripped her pants and was given new ones.
--- NOTE | 2020-12-15 11:15 | PC.NURSE ---
Concrete Inspector and mother at bedside talking. pt calm and talkative
--- NOTE | 2020-12-15 12:45 | PC.NURSE ---
CAROLINA Jason Psych Nurse is at the patient's bedside with [facility] Social Work and patient's mother.
--- NOTE | 2020-12-15 12:46 | PC.NURSE ---
canvas worker apprentice, Luis RN, mom at bedside. pt talking calmly with staff and mom
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
--- NOTE | 2020-12-15 13:17 | PC.NURSE ---
Drinking smoothie while talking with mom at bedside and drawing on paper
--- NOTE | 2020-12-15 13:40 | PC.NURSE ---
Talking with mom and staff at doorway. pt wanting to call DCR and Absorption Operator. pt calmly brought back into pt room. Mom left, pt eating smoothie on bed
--- NOTE | 2020-12-15 13:45 | PC.NURSE ---
Sitting in chair wrighting a letter and talking with staff clamly with a smile on face
--- NOTE | 2020-12-15 14:30 | PC.NURSE ---
Sitting on bed eating, drinking and talking with staff
--- NOTE | 2020-12-15 14:47 | PC.NURSE ---
talking with staff calmly with a smile on face in doorway.
--- NOTE | 2020-12-15 15:00 | PC.NURSE ---
pt appears asleep
--- NOTE | 2020-12-15 15:31 | PC.NURSE ---
pt appears asleep, snoring
--- NOTE | 2020-12-15 15:45 | PC.NURSE ---
pt appears asleep
--- NOTE | 2020-12-15 16:48 | PC.NURSE ---
patient awake and talking with sitter. Laughing and telling stories
--- NOTE | 2020-12-15 16:49 | PC.NURSE ---
pt used restroom, water given, warm blankets given, talking calmly and laughing with sitter
--- NOTE | 2020-12-15 16:52 | PC.NURSE ---
asking to call children, sitting in chair doing origami, cookie & chips given
--- NOTE | 2020-12-15 17:00 | PC.NURSE ---
sitting, making origami quietly
--- NOTE | 2020-12-15 17:15 | PC.NURSE ---
talking on phone with brother whom called. Asking for call to be recorded, to call laywer, and talking about family vactions
--- NOTE | 2020-12-15 17:31 | PC.NURSE ---
talking to brother on phone, calm
--- NOTE | 2020-12-15 17:47 | PC.NURSE ---
Mom at bedside, VS aquired with no distress, dinner tray arrived and patient eating and drinking. pt calm
[2020-12-15 17:48] VITALS: BP 128/64; PULSE 92; RESP 22; TEMP 36.6; O2SAT 98
--- NOTE | 2020-12-15 18:00 | PC.NURSE ---
sitting on mat, playing with a FitBit type watch mom had brought in for pt. Pt calm and quiet with mom at bedside
--- NOTE | 2020-12-15 18:56 | PC.NURSE ---
talking with sitter in room. pt calm, smiling and telling childhood stories
--- NOTE | 2020-12-15 18:57 | PC.NURSE ---
Patient has been very active, verbal and emotional throughout the day. Patient vacillates between highly unreasonable and totally directable. Her emotions change at a moment's notice and she remains emotionally charged. A one-to-one sitter has been provided at all times as well as unlimited access to ED Ear Specialist and RNs. Mother has been at the bedside for most of the day.
--- NOTE | 2020-12-15 19:01 | PC.NURSE ---
pt sitting on mat doing Origami quietly and calm
--- NOTE | 2020-12-15 19:04 | PC.NURSE ---
Patient admitted to [facility] psych-dept, EMS transfer scheduled to arrive @2015
== END 2020-12-15 19:38 ==
PROVIDERS: Emergency Provider Emergency Medicine; Family Provider Family Medicine; PCP Family Medicine
DX: F31.77 Bipolar disorder, in partial remission, most recent episode mixed (principal); Z20.822 Contact with and (suspected) exposure to COVID-19; F31.2 Bipolar disorder, current episode manic severe with psychotic features
CPT/HCPCS: 36415; 80053; 80178; 80305; 80320; 80329; 81001; 81003; 81025; 83690; 84443; 84703; 85025; 87635; 90839; 96372; 99215; 99285; C9803; G0480; J1200; J1630; J2060

== ENCOUNTER → 2021-01-20 11:36 | Outpatient (CLI) | payer OTHER, MEDICAID, SELFPAY ==
[2021-01-20 12:41] LABS: Hemoglobin A1C% w Est Avg Glu 4.8 % (4.0-6.0)
[2021-01-20 12:54] LABS: BUN Creatinine Ratio 9.5 (6-22); Blood Urea Nitrogen 7 mg/dL (7-17); Calcium 9.6 mg/dL (8.4-10.2); Carbon Dioxide 27 mmol/L (22-32); Chloride 104 mmol/L (98-107); Estimated Glomerular Filt Rate > 60.0 mL/min (>60); Glucose 95 mg/dL (70-100); HEMOLYSIS < 15 (0-50); Potassium 4.7 mmol/L (3.4-5.1); Sodium 139 mmol/L (137-145)
[2021-01-20 13:24] LABS: Thyroid Stimulating Hormone 4.34 uIU/mL (0.47-4.68)
== END ==
PROVIDERS: Family Provider Family Medicine; PCP Family Medicine; Referring Provider Nurse Practitioner Psychiatric/Mental Health; Visit Provider Nurse Practitioner Psychiatric/Mental Health
DX: F31.9 Bipolar disorder, unspecified (principal); Z51.81 Encounter for therapeutic drug level monitoring
CPT/HCPCS: 36415; 80048; 80178; 83036; 84439; 84443

== ENCOUNTER → 2021-04-05 09:46 | Outpatient (CLI) | payer OTHER, MEDICAID, SELFPAY ==
[2021-04-05 11:39] LABS: Add Manual Diff / Slide Review NO; Basophils Absolute Auto 0 /uL (0-100); Basophils Percent Auto 0.5 % (0-2); Eosinophils Absolute Auto 400 /uL (0-450); Eosinophils Percent Auto 4.2 % (2-4); Hematocrit 38.9 % (36-46); Hemoglobin 13.1 g/dL (12.0-16.0); Lymphocytes Absolute Auto 1600 /uL (1100-4500); Lymphocytes Percent Auto 17.9 % (25-40); Mean Corpuscular HGB Conc 33.8 % (30-36); Mean Corpuscular Hemoglobin 30.6 PG (26-34); Mean Corpuscular Volume 90.6 fL (80-100); Monocytes Absolute Auto 500 /uL (0-900); Monocytes Percent Auto 5.7 % (3-14); Neutrophils Absolute Auto 6300 /uL (1500-7000); Neutrophils Percent Auto 71.7 % (50-75); Platelet Count 251 X10^3/uL (150-400); Red Blood Cell Count 4.29 X10^6/uL (4.0-5.2); Red Cell Distribution Width 13.5 % (11.6-14.8); White Blood Cell Count 8.7 X10^3/uL (4.5-11.0)
[2021-04-05 12:11] LABS: Lithium 1.1 mmol/L (0.6-1.2)
[2021-04-05 12:25] LABS: Alanine Aminotransferase 42 IU/L (<35); Albumin 4.5 g/dL (3.5-5.0); Albumin Globulin Ratio 1.5 (1.0-2.8); Alkaline Phosphatase 77 U/L (38-126); Aspartate Aminotransferase 32 IU/L (14-36); BUN Creatinine Ratio 18.1 (6-22); Bilirubin Total 0.5 mg/dL (0.2-1.3); Blood Urea Nitrogen 15 mg/dL (7-17); Calcium 10.1 mg/dL (8.4-10.2); Carbon Dioxide 26 mmol/L (22-32); Chloride 103 mmol/L (98-107); Cholesterol 220 mg/dL (140-199); Estimated Glomerular Filt Rate > 60.0 mL/min (>60); Globulin 3.1 g/dL (1.7-4.1); Glucose 97 mg/dL (70-100); HDL Cholesterol 45 mg/dL (40-60); HEMOLYSIS < 15 (0-50); LDL Cholesterol Calculated 116 mg/dL (<100); Magnesium 2.1 mg/dL (1.6-2.3); Potassium 4.1 mmol/L (3.4-5.1); Sodium 137 mmol/L (137-145); Total Protein 7.6 g/dL (6.3-8.2); Triglycerides 296 mg/dL (35-150)
[2021-04-05 12:32] LABS: Free T3, Triiodothyronine Free 3.48 pg/mL (2.77-5.27); Free T4, Direct Thyroxine 0.79 ng/dL (0.78-2.19)
[2021-04-05 12:32] LABS: Vitamin D 25 Hydroxy (D3) 15.6 ng/mL (30.0-100.0)
[2021-04-05 12:46] LABS: Thyroid Stimulating Hormone 6.31 uIU/mL (0.47-4.68)
[2021-04-05 13:06] LABS: Vitamin B12 717 pg/mL (239-931)
[2021-04-06 07:40] LABS: Thyroid Peroxidase Antibodies 44 IU/mL (0-34)
[2021-04-06 19:10] LABS: Anti Thyroglobulin Antibody 0.9 IU/mL (0.0-0.9)
[2021-04-09 19:07] LABS: Vitamin B6 28.2 ug/L (2.0-32.8)
== END ==
PROVIDERS: Family Provider Family Medicine; PCP Family Medicine; Referring Provider Family Medicine; Visit Provider Family Medicine
DX: Z51.81 Encounter for therapeutic drug level monitoring (principal); E03.9 Hypothyroidism, unspecified; F31.9 Bipolar disorder, unspecified; R53.83 Other fatigue; G47.00 Insomnia, unspecified; E66.01 Morbid (severe) obesity due to excess calories; Z68.41 Body mass index [BMI] 40.0-44.9, adult
CPT/HCPCS: 36415; 80053; 80061; 80178; 82306; 82607; 83735; 84207; 84439; 84443; 84481; 85025; 86376; 86800

== ENCOUNTER → 2021-04-26 08:56 | Outpatient (CLI) | payer OTHER, MEDICAID, SELFPAY ==
[2021-04-26 11:03] LABS: Lithium 0.6 mmol/L (0.6-1.2)
[2021-04-26 11:17] LABS: Free T4, Direct Thyroxine 0.76 ng/dL (0.78-2.19)
[2021-04-26 11:31] LABS: Thyroid Stimulating Hormone 4.92 uIU/mL (0.47-4.68)
[2021-04-28 12:09] LABS: Lamotrigine Lamictal 3.8 ug/mL (2.0-20.0)
== END ==
PROVIDERS: Family Provider Family Medicine; PCP Family Medicine; Referring Provider Psychiatry & Neurology Psychiatry; Visit Provider Psychiatry & Neurology Psychiatry
DX: F31.77 Bipolar disorder, in partial remission, most recent episode mixed (principal); Z51.81 Encounter for therapeutic drug level monitoring
CPT/HCPCS: 36415; 80175; 80178; 84439; 84443

== ENCOUNTER → 2021-06-20 07:55 | Outpatient (CLI) | payer OTHER, MEDICAID, SELFPAY ==
[2021-06-20 09:15] LABS: Add Manual Diff / Slide Review NO; Basophils Absolute Auto 0 /uL (0-100); Basophils Percent Auto 0.6 % (0-2); Eosinophils Absolute Auto 200 /uL (0-450); Eosinophils Percent Auto 3.2 % (2-4); Hematocrit 39.1 % (36-46); Hemoglobin 13.3 g/dL (12.0-16.0); Lymphocytes Absolute Auto 1500 /uL (1100-4500); Lymphocytes Percent Auto 24.2 % (25-40); Mean Corpuscular Volume 91.3 fL (80-100); Monocytes Absolute Auto 400 /uL (0-900); Monocytes Percent Auto 6.9 % (3-14); Neutrophils Absolute Auto 4200 /uL (1500-7000); Neutrophils Percent Auto 65.1 % (50-75); Platelet Count 238 X10^3/uL (150-400); Red Blood Cell Count 4.29 X10^6/uL (4.0-5.2); Red Cell Distribution Width 12.8 % (11.6-14.8); White Blood Cell Count 6.4 X10^3/uL (4.5-11.0)
[2021-06-20 09:44] LABS: Lithium 0.9 mmol/L (0.6-1.2)
[2021-06-20 09:48] LABS: Alanine Aminotransferase 18 IU/L (<35); Albumin 4.5 g/dL (3.5-5.0); Albumin Globulin Ratio 1.7 (1.0-2.8); Alkaline Phosphatase 76 U/L (38-126); Aspartate Aminotransferase 23 IU/L (14-36); BUN Creatinine Ratio 11.2 (6-22); Bilirubin Total 0.4 mg/dL (0.2-1.3); Blood Urea Nitrogen 10 mg/dL (7-17); Calcium 9.4 mg/dL (8.4-10.2); Carbon Dioxide 25 mmol/L (22-32); Chloride 104 mmol/L (98-107); Estimated Glomerular Filt Rate > 60 mL/min (>60); Globulin 2.7 g/dL (1.7-4.1); Glucose 102 mg/dL (70-100); HEMOLYSIS < 15 (0-50); Potassium 3.8 mmol/L (3.4-5.1); Sodium 136 mmol/L (137-145); Total Protein 7.2 g/dL (6.3-8.2)
[2021-06-20 10:01] LABS: Free T3, Triiodothyronine Free 3.73 pg/mL (2.77-5.27); Free T4, Direct Thyroxine 0.99 ng/dL (0.78-2.19)
[2021-06-20 10:15] LABS: Thyroid Stimulating Hormone 3.44 uIU/mL (0.47-4.68)
[2021-06-21 08:08] LABS: Calcium 9.6 mg/dL (8.7-10.2); Parathyroid Hormone, Intact 42 pg/mL (15-65)
== END ==
PROVIDERS: Family Provider Family Medicine; PCP Family Medicine; Referring Provider Family Medicine; Visit Provider Family Medicine
DX: E03.9 Hypothyroidism, unspecified (principal); R53.83 Other fatigue; Z51.81 Encounter for therapeutic drug level monitoring
CPT/HCPCS: 36415; 80053; 80178; 82310; 83970; 84439; 84443; 84481; 85025

== ENCOUNTER → 2021-09-08 12:37 | Outpatient (CLI) | payer OTHER, MEDICAID, SELFPAY ==
[2021-09-28 17:17] LABS: Vitamin D 25 Hydroxy (D3) 48.1 ng/mL (30.0-100.0)
== END ==
PROVIDERS: Family Provider Family Medicine; PCP Family Medicine; Referring Provider Family Medicine; Visit Provider Family Medicine
DX: E55.9 Vitamin D deficiency, unspecified (principal)
CPT/HCPCS: 36415; 82306

== ENCOUNTER → 2022-03-28 08:21 | Outpatient (CLI) | payer OTHER, MEDICAID, SELFPAY ==
[2022-03-28 09:21] LABS: Hematocrit 40.9 % (36-46); Hemoglobin 14.1 g/dL (12.0-16.0); Mean Corpuscular HGB Conc 34.6 % (30-36); Mean Corpuscular Hemoglobin 31.6 PG (26-34); Mean Corpuscular Volume 91.4 fL (80-100); Platelet Count 267 X10^3/uL (150-400); Red Blood Cell Count 4.47 X10^6/uL (4.0-5.2); Red Cell Distribution Width 13.1 % (11.6-14.8); White Blood Cell Count 8.5 X10^3/uL (4.5-11.0)
[2022-03-28 11:25] LABS: Alanine Aminotransferase 22 IU/L (<35); Albumin 4.6 g/dL (3.5-5.0); Albumin Globulin Ratio 1.4 (1.0-2.8); Alkaline Phosphatase 108 U/L (38-126); Aspartate Aminotransferase 23 IU/L (14-36); BUN Creatinine Ratio 15.6 (6-22); Bilirubin Total 0.3 mg/dL (0.2-1.3); Blood Urea Nitrogen 14 mg/dL (7-17); Calcium 9.7 mg/dL (8.4-10.2); Carbon Dioxide 21 mmol/L (22-32); Chloride 103 mmol/L (98-107); Estimated Glomerular Filt Rate > 60 mL/min (>60); Globulin 3.3 g/dL (1.7-4.1); Glucose 111 mg/dL (70-100); HEMOLYSIS < 15 (0-50); Potassium 3.7 mmol/L (3.4-5.1); Sodium 136 mmol/L (137-145); Total Protein 7.9 g/dL (6.3-8.2)
[2022-03-28 11:33] LABS: Lithium 1.1 mmol/L (0.6-1.2)
[2022-03-28 12:08] LABS: TSH w/ Reflex to FT4 5.85 uIU/mL (0.47-4.68)
[2022-03-28 12:16] LABS: Vitamin B12 699 pg/mL (239-931)
[2022-03-28 12:36] LABS: Free T4, Direct Thyroxine 0.85 ng/dL (0.78-2.19)
[2022-04-02 15:08] LABS: Lamotrigine Lamictal 4.7 ug/mL (2.0-20.0)
== END ==
PROVIDERS: Psychiatry & Neurology Psychiatry; Family Provider Family Medicine; PCP Family Medicine; Referring Provider Nurse Practitioner Family; Visit Provider Nurse Practitioner Family
DX: R53.83 Other fatigue (principal); Z51.81 Encounter for therapeutic drug level monitoring
CPT/HCPCS: 36415; 80053; 80175; 80178; 82607; 84439; 84443; 85027

== ENCOUNTER → 2022-04-26 08:17 | Outpatient (CLI) | payer OTHER, MEDICAID, SELFPAY ==
[2022-04-26 09:17] LABS: Lithium 0.7 mmol/L (0.6-1.2)
[2022-04-26 10:18] LABS: Thyroid Stimulating Hormone 4.22 uIU/mL (0.47-4.68)
== END ==
PROVIDERS: Family Provider Family Medicine; PCP Family Medicine; Referring Provider Psychiatry & Neurology Psychiatry; Visit Provider Psychiatry & Neurology Psychiatry
DX: F31.77 Bipolar disorder, in partial remission, most recent episode mixed (principal); Z79.899 Other long term (current) drug therapy; E03.9 Hypothyroidism, unspecified
CPT/HCPCS: 36415; 80178; 84439; 84443

== ENCOUNTER → 2022-10-08 15:51 | Outpatient (CLI) | payer OTHER, MEDICAID, SELFPAY | PROVIDERS: Family Provider Family Medicine; PCP Family Medicine; Visit Provider Family Medicine | DX: E03.9 Hypothyroidism, unspecified (principal); E66.01 Morbid (severe) obesity due to excess calories; E78.5 Hyperlipidemia, unspecified; N89.8 Other specified noninflammatory disorders of vagina; R73.01 Impaired fasting glucose; Z68.41 Body mass index [BMI] 40.0-44.9, adult | CPT/HCPCS: 87210; 87220 ==

== ENCOUNTER → 2023-11-14 06:48 | Outpatient (CLI) | payer OTHER, MEDICAID, SELFPAY ==
[2023-11-14 08:06] LABS: Add Manual Diff / Slide Review NO; Basophils Absolute Auto 0 /uL (0-100); Basophils Percent Auto 0.5 % (0-2); Eosinophils Absolute Auto 200 /uL (0-450); Eosinophils Percent Auto 2.8 % (2-4); Hematocrit 40.1 % (36-46); Hemoglobin 13.8 g/dL (12.0-16.0); Lymphocytes Absolute Auto 1800 /uL (1100-4500); Lymphocytes Percent Auto 23.3 % (25-40); Mean Corpuscular HGB Conc 34.4 % (30-36); Mean Corpuscular Hemoglobin 31.7 PG (26-34); Mean Corpuscular Volume 92.3 fL (80-100); Monocytes Absolute Auto 500 /uL (0-900); Monocytes Percent Auto 6.2 % (3-14); Neutrophils Absolute Auto 5300 /uL (1500-7000); Neutrophils Percent Auto 67.2 % (50-75); Platelet Count 244 X10^3/uL (150-400); Red Blood Cell Count 4.34 X10^6/uL (4.0-5.2); Red Cell Distribution Width 12.7 % (11.6-14.8); White Blood Cell Count 7.9 X10^3/uL (4.5-11.0)
[2023-11-14 08:47] LABS: Alanine Aminotransferase 25 IU/L (<35); Albumin Globulin Ratio 1.4 (1.0-2.8); Alkaline Phosphatase 82 U/L (38-126); Aspartate Aminotransferase 24 IU/L (14-36); BUN Creatinine Ratio 17.1 (6-22); Bilirubin Total 0.5 mg/dL (0.2-1.3); Blood Urea Nitrogen 12 mg/dL (7-17); Calcium 9.8 mg/dL (8.4-10.2); Carbon Dioxide 24 mmol/L (22-32); Chloride 103 mmol/L (98-107); Cholesterol 165 mg/dL (140-199); Estimated Glomerular Filt Rate > 60 mL/min (>60); Globulin 2.8 g/dL (1.7-4.1); Glucose 102 mg/dL (70-100); HDL Cholesterol 45 mg/dL (40-60); HEMOLYSIS 28 (0-50); LDL Cholesterol Calculated 80 mg/dL (<100); Potassium 4.4 mmol/L (3.4-5.1); Sodium 133 mmol/L (137-145); Total Protein 6.8 g/dL (6.3-8.2); Triglycerides 200 mg/dL (35-150)
[2023-11-14 09:17] LABS: TSH w/ Reflex to FT4 3.24 uIU/mL (0.47-4.68)
[2023-11-14 12:02] LABS: Lithium 0.9 mmol/L (0.6-1.2)
== END ==
PROVIDERS: Family Provider Family Medicine; PCP Family Medicine; Referring Provider Psychiatry & Neurology Psychiatry; Visit Provider Psychiatry & Neurology Psychiatry
DX: F31.9 Bipolar disorder, unspecified (principal); Z51.81 Encounter for therapeutic drug level monitoring; Z79.899 Other long term (current) drug therapy; E03.9 Hypothyroidism, unspecified; F31.77 Bipolar disorder, in partial remission, most recent episode mixed
CPT/HCPCS: 36415; 80053; 80061; 80175; 80178; 83036; 84443; 85025

== ENCOUNTER → 2024-11-06 07:06 | Outpatient (CLI) | payer OTHER, SELFPAY ==
[2024-11-06 08:17] LABS: Add Manual Diff / Slide Review NO; Hematocrit 39.9 % (36-46); Hemoglobin 13.8 g/dL (12.0-16.0); Lymphocytes Absolute Auto 1700 /uL (1100-4500); Mean Corpuscular HGB Conc 34.7 % (30-36); Mean Corpuscular Hemoglobin 31.6 PG (26-34); Mean Corpuscular Volume 91.2 fL (80-100); Platelet Count 266 X10^3/uL (150-400)
[2024-11-06 08:30] LABS: Hemoglobin A1C% w Est Avg Glu 5.3 % (4.0-6.0)
[2024-11-06 08:44] LABS: Alanine Aminotransferase 27 IU/L (<35); Albumin 4.3 g/dL (3.5-5.0); Albumin Globulin Ratio 1.5 (1.0-2.8); Alkaline Phosphatase 90 U/L (38-126); Blood Urea Nitrogen 16 mg/dL (7-17); Calcium 9.5 mg/dL (8.4-10.2); Carbon Dioxide 21 mmol/L (22-32); Chloride 102 mmol/L (98-107); Cholesterol 169 mg/dL (140-199); Estimated Glomerular Filt Rate > 60 mL/min (>60); Globulin 2.8 g/dL (1.7-4.1); Glucose 99 mg/dL (70-99); HDL Cholesterol 41 mg/dL (40-60); HEMOLYSIS < 15 (0-50); Potassium 4.1 mmol/L (3.4-5.1); Sodium 134 mmol/L (137-145); Total Protein 7.1 g/dL (6.3-8.2); Triglycerides 240 mg/dL (35-150)
[2024-11-06 08:46] LABS: Lithium 0.8 mmol/L (0.6-1.2)
[2024-11-06 09:01] LABS: Follicle Stimulating Hormone 1.48 mIU/mL
[2024-11-06 09:16] LABS: TSH w/ Reflex to FT4 3.19 uIU/mL (0.47-4.68)
[2024-11-10 07:09] LABS: Lamotrigine Lamictal 4.4 ug/mL (2.0-20.0)
[2024-11-17 13:40] LABS: Estradiol, Sensitive <2.5 pg/mL (.)
== END ==
LOC: LAB 07:07
PROVIDERS: Family Provider Family Medicine; PCP Family Medicine; Referring Provider Family Medicine; Visit Provider Psychiatry & Neurology Psychiatry
DX: F31.9 Bipolar disorder, unspecified (principal); N95.1 Menopausal and female climacteric states; Z79.899 Other long term (current) drug therapy; Z30.8 Encounter for other contraceptive management
CPT/HCPCS: 36415; 80053; 80061; 80175; 80178; 82670; 83001; 83036; 84146; 84443; 85025